=== PATIENT | female | born 1985 | race Caucasian/White ===

== ENCOUNTER 2021-09-18 17:36 | Inpatient (IN) | payer OTHER ==
[~2021-09-18] VITALS: Ht 157.5 cm; Wt 81.2 kg
[2021-09-18 17:54] VITALS: BP 105/73
[2021-09-18 20:26] LABS: ABSOLUTE LYMPHOCYTES 1.2 thou/uL (0.8-5.3); ABSOLUTE MONOCYTES 0.4 thou/uL (0.0-1.2); ABSOLUTE NEUTROPHILS 2.8 thou/uL (1.6-8.1); BASOPHILS 0.4 %; EOSINOPHILS 0.1 %; HEMATOCRIT 44.3 % (37.0-47.0); HEMOGLOBIN 14.7 gm/dL (12.0-15.0); MCH 29.1 pg (26.0-34.0); MCHC 33.2 g/dL (28.0-37.0); MCV 87.5 fL (80.0-100.0); MPV 8.3 fl. (7.2-11.1); NUCLEATED RBCS 0 /100WBC; PLATELET COUNT* 202 thou/uL (150-400); POLYS 63.5 %; RBC 5.06 mil/uL (4.20-5.00); RDW-CV 13.4 % (10.5-14.5); WBC 4.4 thou/uL (4.0-11.0)
[2021-09-18 20:36] LABS: CALCIUM 8.3 mg/dL (8.5-10.1); CREATININE 0.8 mg/dL (0.6-1.3); POTASSIUM 3.6 mmol/L (3.5-5.1)
[2021-09-18 20:47] LABS: ALBUMIN 3.5 g/dL (3.4-5.0); TOTAL BILIRUBIN 0.3 mg/dL (<0.1-1.0); TOTAL PROTEIN 7.3 g/dL (6.4-8.2)
[2021-09-19] VITALS (8 sets, daily range): BP systolic 88–107; BP diastolic 50–73
[2021-09-19 09:15] LABS: ABSOLUTE LYMPHOCYTES 0.9 thou/uL (0.8-5.3); ABSOLUTE MONOCYTES 0.3 thou/uL (0.0-1.2); ABSOLUTE NEUTROPHILS 3.3 thou/uL (1.6-8.1); BASOPHILS 0.1 %; HEMATOCRIT 41.3 % (37.0-47.0); HEMOGLOBIN 13.7 gm/dL (12.0-15.0); LYMPHOCYTES 19.6 %; MCH 29.1 pg (26.0-34.0); MCHC 33.1 g/dL (28.0-37.0); MCV 87.9 fL (80.0-100.0); MONOCYTES 5.9 %; MPV 8.5 fl. (7.2-11.1); NUCLEATED RBCS 0 /100WBC; PLATELET COUNT* 224 thou/uL (150-400); POLYS 74.4 %; RDW-CV 13.5 % (10.5-14.5); WBC 4.5 thou/uL (4.0-11.0)
[2021-09-19 09:21] LABS: CALCIUM 7.4 mg/dL (8.5-10.1); CREATININE 0.8 mg/dL (0.6-1.3); POTASSIUM 3.9 mmol/L (3.5-5.1)
--- NOTE | 2021-09-19 09:50 | NUR ---
Pt is admitted to the hospital on 09/18/21 with Covid 19. Called pt's cell phone to obtain information as next of kin contact listed was spouse - Fredy but number appears to be out of order. Pt reports she lives with her son in a town home. Pt reports she was previously independent in ADL's and Mobility. No hx of HH, DME, or SNF. Pt fills her prescriptions at [facility] and does not have a PCP at this time. CM to continue to follow for discharge planning.
--- NOTE | 2021-09-19 11:02 | EKG ---
[place] [address] ELECTROCARDIOGRAM REPORT Name: SHANEL CALLAWAY Room: [place] [address] ADM IN [facility]#: [id number] Admission: 09/18/21 Attend Phys: Martha Hargrove, Discharge: Date of : 85 Date of Service: 09/18/211751 Report #: [id number] THIS REPORT FOR: //name// [facility] ED Test Date: 2021-09-18 Test Time: 17:52:46 Pat Name: SHANEL CALLAWAY Department: Room: [facility] Gender: F Clinical Biostatistician: YURIDIA : 1985 Requested By: Qamar Liz Order Number: [id number] MD: Doron Barrera Measurements Intervals [place] Rate: 118 P: 38 TN: 154 QRS: 15 QRSD: 65 T: 16 QT: 350 QTc: 491 Interpretive Statements Sinus tachycardia Probable left atrial enlargement Low voltage, precordial leads Borderline T abnormalities, anterior leads Borderline prolonged QT interval Baseline wander in lead(s) V2,V4,V5,V6 No previous ECG available for comparison Electronically Signed On 09-19-2021 11:02:08 [employer] by Doron Barrera [email or web address] <ELECTRONICALLY SIGNED> By: Doron Barrera MD, FACC 09/19/21 1102 175 175 Doron Barrera MD, FAC /EPI
[2021-09-20] VITALS (7 sets, daily range): BP systolic 100–106; BP diastolic 64–78
--- NOTE | 2021-09-20 04:05 | NUR ---
PT A&OX4, VSS ON ROOM AIR. IV FLUIDS INFUSING ORDERED, PROTONIX DRIP INFUSING ORDERED. PT UP AD POOJA TO BSC. SR ON TELE MONITOR. PT SLEEPING WELL, WILL CONTINUE TO MONITOR.
[2021-09-20 04:41] LABS: HEMATOCRIT 37.8 % (37.0-47.0); HEMOGLOBIN 12.7 gm/dL (12.0-15.0); MCH 29.7 pg (26.0-34.0); MCHC 33.5 g/dL (28.0-37.0); MCV 88.6 fL (80.0-100.0); MPV 8.5 fl. (7.2-11.1); RBC 4.27 mil/uL (4.20-5.00); RDW-CV 13.5 % (10.5-14.5)
[2021-09-20 05:11] LABS: ALBUMIN 2.7 g/dL (3.4-5.0); CALCIUM 7.3 mg/dL (8.5-10.1); CREATININE 0.6 mg/dL (0.6-1.3); MAGNESIUM 1.9 mg/dL (1.8-2.4); POTASSIUM 3.4 mmol/L (3.5-5.1); TOTAL BILIRUBIN 0.2 mg/dL (<0.1-1.0)
[2021-09-20] MEDS ORDERED: PROTONIX40 M4 PO (10:08)
[2021-09-20] MEDS ORDERED: ZITHROMAX TRI-500 MG PO (10:08)
[2021-09-20] MEDS ORDERED: DEXAMETHASONE 22 M1 PO (10:08)
--- NOTE | 2021-09-20 13:28 | NUR ---
DISCONTINUE IV AND TELE. PT UNDERSTANDS ALL FOLLOW UP ORDERS AND WILL BE DISCHARGED TO HOME VIA PRIVATE VEHICLE.
--- NOTE | 2021-09-20 16:40 | NUR ---
CM FOLLOWUP PT MED CLEAR AND DC'D HOME WITH NO CM NEEDS.
== END 2021-09-20 14:35 | disposition home or self-care (01) | DRG 177 ==
LOC: M.ERS 17:36 → M.TBA-ER 21:45 → M.ORTHSURG 09-19 15:28
PROVIDERS: Emergency Medicine Emergency Medical Services; ADMIT Internal Medicine; ATTEND Internal Medicine
PROC: XW033E5 Introduction of Remdesivir Anti-infective into Peripheral Vein, Percutaneous Approach, New Technology Group 5 (ICD-10-PCS; principal; 2021-09-19)
DX: U07.1 COVID-19 (principal); J12.82 Pneumonia due to coronavirus disease 2019; K92.0 Hematemesis; E86.0 Dehydration; I95.9 Hypotension, unspecified; R73.9 Hyperglycemia, unspecified; Z79.899 Other long term (current) drug therapy